=== PATIENT | female | born 1980 | race Caucasian/White ===

== ENCOUNTER 2017-08-10 19:43 | Inpatient (IN) | payer BC ==
[~2017-08-10] VITALS: Ht 160 cm; Wt 75.0 kg
[~2017-08-10 19:43] MED LIST: ATARAX,VISTARIL25 MG PO; CITALOPRAM HBR20 MG PO; FIORICET,ESG1 TABLET PO; MIRTAZAPINE15 MG PO; MOTRIN600 MG PO; MULTIVITAMIN1 EAC2 PO; NAPROSYN500 MG PO; NEXIUM20 MG PO; NO HOME MEDS; OMEPRAZOLE10 M1 PO; PEPCID20 MG PO; PERCOCET 5/31 TABLET PO; PROMETHAZINE HC25 M1 PO; TORADOL10 MG PO; VALIUM5 MG PO; ZITHROMAX250 MG PO; ZOFRAN ODT4 MG PO; ZOFRAN4 MG PO
[2017-08-10 20:01] VITALS: BP 122/75
[2017-08-10] MEDS ORDERED: PRENATAL TABLE1 EAC3 PO (20:53)
[2017-08-10 21:00] VITALS: BP 129/80
[2017-08-10 21:26] LABS: BASOPHIL (%) 0.3 % (0-1); EOSINOPHIL (%) 0.9 % (0-5); EOSINOPHIL COUNT 0.1 K/uL (0-0.3); HEMATOCRIT 34.2 % (36.0-46.0); HEMOGLOBIN 11.4 G/DL (11.9-15.5); IMMATURE GRANULOCYTE (%) 1.8 % (0.0-0.7); LYMPHOCYTE (%) 12.1 % (15-42); LYMPHOCYTE COUNT 1.7 K/uL (1.0-2.8); MCHC 33.3 G/DL (30.0-36.0); MCV 99.1 FL (83-99); MONOCYTE (%) 6.2 % (3-12); MONOCYTE COUNT 0.9 K/uL (0-0.8); NEUTROPHIL (%) 78.7 % (45-76); NEUTROPHIL COUNT 10.8 K/uL (1.8-6.4); PLATELET COUNT 200 K/uL (156-360); RBC DIS.WIDTH-SD 50.7 % (39-53); RED BLOOD COUNT 3.45 M/uL (3.80-5.20); WHITE BLOOD COUNT 13.7 K/uL (4.1-10.2)
[2017-08-10 22:46] VITALS: BP 112/68
[2017-08-11] VITALS (26 sets, daily range): BP systolic 109–140; BP diastolic 57–87
[2017-08-12 06:55] VITALS: BP 110/69
[2017-08-12 07:40] LABS: BASOPHIL (%) 0.1 % (0-1); EOSINOPHIL (%) 0.2 % (0-5); HEMATOCRIT 28.3 % (36.0-46.0); IMMATURE GRANULOCYTE (%) 0.9 % (0.0-0.7); LYMPHOCYTE (%) 11.4 % (15-42); LYMPHOCYTE COUNT 1.8 K/uL (1.0-2.8); MCH 33.3 PG (29.0-34.0); MCHC 32.9 G/DL (30.0-36.0); MCV 101.4 FL (83-99); MONOCYTE (%) 6.3 % (3-12); NEUTROPHIL (%) 81.1 % (45-76); NEUTROPHIL COUNT 13.1 K/uL (1.8-6.4); PLATELET COUNT 162 K/uL (156-360); RBC DIS.WIDTH-CV 14.3 % (11.8-14.6); RBC DIS.WIDTH-SD 52.4 % (39-53); RED BLOOD COUNT 2.79 M/uL (3.80-5.20); WHITE BLOOD COUNT 16.1 K/uL (4.1-10.2)
[2017-08-12 07:43] LABS: HEMOGLOBIN 9.3 G/DL (11.9-15.5)
[2017-08-12 10:50] VITALS: BP 121/67
[2017-08-12 14:40] VITALS: BP 113/56
[2017-08-12 20:18] VITALS: BP 113/76
[2017-08-12 23:00] VITALS: BP 116/64
[2017-08-13 03:00] VITALS: BP 116/73
[2017-08-13 07:16] VITALS: BP 136/86
[2017-08-13 11:06] VITALS: BP 122/73
[2017-08-13 16:08] VITALS: BP 125/75
[2017-08-13 23:05] VITALS: BP 125/76
[2017-08-14 07:22] VITALS: BP 132/73
[2017-08-14 16:04] VITALS: BP 121/71
[2017-08-14 22:51] VITALS: BP 122/71
[2017-08-15 07:47] VITALS: BP 142/78
[2017-08-15] MEDS ORDERED: IBUPROFEN800 MG PO (09:25)
[2017-08-15] MEDS ORDERED: ENDOCET 5-3251 EACH PO (09:25)
== END 2017-08-15 12:54 | disposition home or self-care (01) | DRG 765 ==
LOC: LDRP-OP 19:43 → 2WEST 19:44 → LDRP-OP 09-22 14:29
PROVIDERS: Advanced Practice Midwife; Obstetrics & Gynecology Obstetrics
DX: O65.4 Obstructed labor due to fetopelvic disproportion, unspecified (principal); O62.1 Secondary uterine inertia; O99.52 Diseases of the respiratory system complicating childbirth; J06.9 Acute upper respiratory infection, unspecified; O99.03 Anemia complicating the puerperium; D62 Acute posthemorrhagic anemia; Z3A.38 38 weeks gestation of pregnancy; Z37.0 Single live birth
CPT/HCPCS: 85025; C1755; G0378; J0595; J0690; J1100; J1885; J2175; J2274; J2370; J2405; J3010; J7120